=== PATIENT | female | born 2000 ===

== ENCOUNTER 2024-02-10 06:23 | Day surgery (SDC) | payer OTHER, SELFPAY ==
[2024-02-10] VITALS (7 sets, daily range): BP systolic 104–120; BP diastolic 56–80; BMI 24.5
[2024-02-10] MEDS: NORMOSOL-R 1000 IV (09:09)
[2024-02-10] MEDS: TYLENOL 1000 MG PO (10:06)
== END 2024-02-10 12:51 | disposition home or self-care (01) ==
LOC: SDS 06:23
PROVIDERS: ATTENDING PHYSICIAN Otolaryngology
DX: J34.2 Deviated nasal septum (principal); J34.3 Hypertrophy of nasal turbinates
CPT/HCPCS: 30520; 30802